=== PATIENT | male | born 1975 | race Hispanic/Latino ===

== ENCOUNTER 2018-09-04 14:38 | Inpatient (IN) ==
[2018-09-04 15:08] LABS: BASO# 0.01 X1000 (0.0-0.2); BASO% 0.1 % (0.0-0.8); HEMATOCRIT 41.8 % (42.0-52.0); HEMOGLOBIN 14.6 g/dL (14.0-18.0); IMM GRAN# 0.01 X1000 (0.0-0.04); IMM GRAN% 0.1 % (0.0-0.5); LYMPH# 0.76 X1000 (1.2-3.4); LYMPH% 8.8 % (20.5-51.1); MCH 29.1 PG (27-31); MCHC 34.9 g/dL (33-37); MCV 83.3 FL (81-99); MONO# 0.82 X1000 (0.11-0.59); MONO% 9.5 % (1.7-9.3); MPV 11.3 FL (7.4-10.4); NEUT# 7.05 X1000 (1.4-6.5); NEUT% 81.5 % (42.2-75.2); PLT 185 X1000 (130-400); RBC 5.02 XMIL (4.7-6.1); RDW 12.2 % (11.5-14.5); WBC 8.65 X1000 (4.8-10.8)
[2018-09-04 15:16] LABS: BE -5.1 mmoll (-3.0-3.0); BLOOD TYPE ARTERIAL; HCO3-(ACT) 20.8 mmoll (20.0-26.0); METHB 1.2 % (0.0-1.5); O2(CT) 19.3 mL/dL (15.0-23.0); PCO2(98.6) 32 mmHg (35-45); PO2(98.6) 71 mmHg (60-100); SAMPLE BLOOD; SAO2 97.3 % (95.0-100.0); THB 14.6 g/dL (11.5-17.4); pH(98.6) 7.38 (7.35-7.45)
[2018-09-04 15:17] LABS: BILIRUBIN URINE NEGATIVE (NEGATIVE); BLOOD URINE NEGATIVE (NEGATIVE); CLARITY CLEAR (CLEAR); COLOR YELLOW; KETONE URINE 3+(Large) mg/dL (NEGATIVE); LEUKOCYTES URINE NEGATIVE (NEGATIVE); NITRITE URINE NEGATIVE (NEGATIVE); PH URINE 6.5; PROTEIN URINE NEGATIVE (NEGATIVE); SP GRAVITY URINE 1.015; UROBILINOGEN URINE NORMAL
[2018-09-04 15:18] LABS: MODALITY ROOM AIR
[2018-09-04 15:19] LABS: ALLEN TEST NO
[2018-09-04 15:21] LABS: URINE SOURCE CLEAN CATCH
[2018-09-04 15:22] LABS: URINE BACTERIA NEGATIVE /HFP; URINE CAST NONE SEEN /LPF; URINE CRYSTAL NONE SEEN /HPF; URINE EPITHELIAL CELLS <10 /HPF (<10); URINE RBC <10 /HPF (<10); URINE WBC <10 /HPF (<10); URINE YEAST NONE SEEN /HPF
[2018-09-04 15:34] LABS: ESTIMATED GFR > 60
[2018-09-04] MEDS ORDERED: NS 1,000 ML IV ONE ×2 (15:34→17:01)
[2018-09-04] MEDS ORDERED: HUMALOG IV ONE (15:35)
[2018-09-04] MEDS ORDERED: HUMULIN R (PARKWAY) IV ONE (15:43)
[2018-09-04] MEDS ORDERED: HUMULIN R (PARKWAY) ONE (15:44)
[2018-09-04 15:54] LABS: AGAP 22; ALBUMIN 4.1 g/dL (3.5-5.0); ALKALINE PHOSPHATASE 136 U/L (32-122); BUN 20 mg/dL (8-22); CALCIUM 8.6 mg/dL (8.8-10.2); CHLORIDE 88 mmol/L (98-107); COSMO 290; GLUCOSE 583 mg/dL (70-104); GOT 27 U/L (10-34); GPT 23 U/L (10-44); POTASSIUM 4.8 mmol/L (3.5-5.1); SODIUM 130 mmol/L (136-145); TCO2 20 mmol/L (25-35); TOTAL PROTEIN 7.6 g/dL (6.3-8.3)
[2018-09-04] MEDS ORDERED: NOVOLOG MIX 70/30 (PARKWAY) SUBQ ONE (16:35)
[2018-09-04] MEDS ORDERED: HUMULIN 70/30 (PARKWAY) ONE (16:42)
[2018-09-04] MEDS ORDERED: ZOFRAN ODT PO ONE (16:56)
[2018-09-04 17:32] LABS: MAGNESIUM 1.8 mg/dL (1.5-2.7); PHOSPHORUS 4.7 mg/dL (2.7-4.5)
--- NOTE | 2018-09-04 18:25 | HISTORY AND PHYSICAL ---
CHIEF COMPLAINT: "I think my blood pressure is high. I have been vomiting." HISTORY OF PRESENT ILLNESS: This is a 43-year-old gentleman who presented to the emergency room stating that he had no way to check his blood sugar, but he felt that it was high. He does have a history of insulin dependent diabetes. He was found to have a blood sugar of 583. He states he takes no home medicines and it is unknown when he actually did his last blood sugar check. He was given a liter of saline as well as IV insulin in the emergency room. He is being admitted for further evaluation and treatment. PAST MEDICAL HISTORY: Insulin-dependent diabetes mellitus. PAST SURGICAL HISTORY: Denies. SOCIAL HISTORY: He smokes daily. He denies alcohol or illicit drug use. ALLERGIES: No known drug allergies. HOME MEDICATIONS: None. REVIEW OF SYSTEMS: Discussed with the patient with pertinent positives stated in HPI. He denied any syncope, dizziness, chest pain, palpitations, any black or bloody vomitus or stools, any diarrhea, constipation, any hematuria, dysuria, urgency. PHYSICAL EXAMINATION: GENERAL: This is a 43-year-old gentleman who presented to the emergency room complaining of elevated blood sugar. DICTATION ENDS HERE Dictated by ERMELINDA Ochoa for Leland Oshea MD This chart was documented by, ERMELINDA Ochoa and accurately reflects the services performed, treatment plan and medical decisions as attested by the providers signature Leland Oshea MD. cc: ERMELINDA Ochoa MD
[2018-09-04 18:45] LABS: MAGNESIUM 1.6 mg/dL (1.5-2.7); PHOSPHORUS 2.6 mg/dL (2.7-4.5)
[2018-09-04 18:57] LABS: AGAP 16; BUN 18 mg/dL (8-22); CALCIUM 7.6 mg/dL (8.8-10.2); CHLORIDE 98 mmol/L (98-107); COSMO 283; CREATININE 0.9 mg/dL (0.7-1.2); ESTIMATED GFR > 60; GLUCOSE 295 mg/dL (70-104); POTASSIUM 4.1 mmol/L (3.5-5.1); SODIUM 135 mmol/L (136-145); TCO2 21 mmol/L (25-35)
[2018-09-04] MEDS: NS 1,000 ML IV SCH (19:35)
--- NOTE | 2018-09-04 19:50 | Diag Imaging Result Doc PS360 ---
EXAM: CHEST-2 VIEWS INDICATION: ?reportedly something in lungs" TECHNIQUE: 2 views COMPARISON: None. FINDINGS: There is a vague opacity in the right midlung zone suggesting a subtle infiltrate. The left lung appears clear. There is no discrete pleural fluid collection or pneumothorax. The cardiomediastinal silhouette and central vasculature are grossly unremarkable. IMPRESSION: Suggestion of a mild infiltrate in the right midlung zone. Electronically signed by Jose Swanson 09/04/2018 7:48 PM
[2018-09-04] MEDS: HUMALOG (PARKWAY) SUBQ SCH (21:33)
[2018-09-04] MEDS ORDERED: TYLENOL PO PRN (22:05)
[2018-09-04] MEDS: ROCEPHIN 1 GM in NS 50 ML IV SCH ×2 (22:55→23:03)
[2018-09-04 23:06] LABS: PROTIME 13.7 Seconds (11.0-16.0)
[2018-09-04 23:07] LABS: PTT 36.4 Seconds (22.3-41.8)
--- NOTE | 2018-09-05 01:52 | HISTORY AND PHYSICAL ---
ADDENDUM: Patient seen and examined by myself. Full note dictated and discussed with nurse practitioner. The patient presented to the hospital with elevated blood sugar. His acetone was mildly positive. We will admit in the hospital, place him on insulin and follow. cc: Leland Oshea MD
[2018-09-05] MEDS: NS 1,000 ML IV SCH ×3 (03:58→21:27)
[2018-09-05] MEDS: ZOFRAN IV PRN ×3 (04:01→16:11)
[2018-09-05 05:22] LABS: HEMOGLOBIN A1C 11.1 % (4.8-6.0)
[2018-09-05 05:24] LABS: BASO# 0.01 X1000 (0.0-0.2); BASO% 0.1 % (0.0-0.8); HEMATOCRIT 36.5 % (42.0-52.0); HEMOGLOBIN 12.7 g/dL (14.0-18.0); IMM GRAN# 0.01 X1000 (0.0-0.04); IMM GRAN% 0.1 % (0.0-0.5); LYMPH# 1.59 X1000 (1.2-3.4); LYMPH% 15.6 % (20.5-51.1); MCH 28.7 PG (27-31); MCHC 34.8 g/dL (33-37); MCV 82.4 FL (81-99); MONO# 1.16 X1000 (0.11-0.59); MONO% 11.4 % (1.7-9.3); MPV 11.3 FL (7.4-10.4); NEUT# 7.41 X1000 (1.4-6.5); NEUT% 72.8 % (42.2-75.2); PLT 165 X1000 (130-400); RBC 4.43 XMIL (4.7-6.1); WBC 10.18 X1000 (4.8-10.8)
[2018-09-05 05:30] LABS: AGAP 14; ALBUMIN 3.2 g/dL (3.5-5.0); ALKALINE PHOSPHATASE 99 U/L (32-122); BUN 18 mg/dL (8-22); CALCIUM 7.6 mg/dL (8.8-10.2); CHLORIDE 98 mmol/L (98-107); COSMO 278; CREATININE 0.7 mg/dL (0.7-1.2); ESTIMATED GFR > 60; GLUCOSE 309 mg/dL (70-104); GOT 22 U/L (10-34); GPT 16 U/L (10-44); POTASSIUM 3.8 mmol/L (3.5-5.1); SODIUM 132 mmol/L (136-145); TCO2 21 mmol/L (25-35); TOTAL PROTEIN 6.2 g/dL (6.3-8.3)
[2018-09-05] MEDS: HUMALOG (PARKWAY) SUBQ SCH ×4 (06:09→21:27)
[2018-09-05] MEDS: PRILOSEC PO SCH (06:09)
[2018-09-05] MEDS ORDERED: FLU VACCINE IM ONE (09:00)
[2018-09-05] MEDS: ROCEPHIN 1 GM in NS 50 ML IV SCH (21:26)
--- NOTE | 2018-09-06 00:10 | PROGRESS NOTE ---
DATE: 09/05/2018 SUBJECTIVE: Patient has no complaints this morning. PHYSICAL EXAMINATION: Vital Signs: T-max 103.5 degrees, temperature current 99 degrees, pulse 100 respiratory 20, BP 125/71. General: Patient is pleasant to talk with. He is in no current respiratory distress. HEENT: Normocephalic. Neck: Supple. Cardiovascular: Regular rate. Chest: Clear. Abdomen: Soft. Extremities: Moves all extremities. ASSESSMENT: 1. Diabetic ketoacidosis, appears resolved. Blood sugars improved. Sodium bicarbonate is at 21. 2. Diabetes with very poor home control. His A1c is 11. PLAN: We will adjust his medications. Advance his diet and hopefully home over the next day or 2. cc: Leland Oshea MD
[2018-09-06] MEDS: NS 1,000 ML IV SCH (05:17)
[2018-09-06 05:45] VITALS: BP 133/79
[2018-09-06] MEDS: PRILOSEC PO SCH (06:07)
[2018-09-06] MEDS: HUMALOG (PARKWAY) SUBQ SCH ×2 (06:07→11:31)
[2018-09-06 06:18] LABS: BASO# 0.01 X1000 (0.0-0.2); BASO% 0.1 % (0.0-0.8); EOS# 0.02 X1000 (0.0-0.7); EOS% 0.2 % (0.0-10.0); HEMATOCRIT 34.7 % (42.0-52.0); HEMOGLOBIN 11.9 g/dL (14.0-18.0); IMM GRAN# 0.01 X1000 (0.0-0.04); IMM GRAN% 0.1 % (0.0-0.5); LYMPH# 1.54 X1000 (1.2-3.4); LYMPH% 17.1 % (20.5-51.1); MCH 28.5 PG (27-31); MCHC 34.3 g/dL (33-37); MONO# 0.68 X1000 (0.11-0.59); MONO% 7.6 % (1.7-9.3); MPV 11.7 FL (7.4-10.4); NEUT# 6.72 X1000 (1.4-6.5); NEUT% 74.9 % (42.2-75.2); PLT 145 X1000 (130-400); RBC 4.18 XMIL (4.7-6.1); WBC 8.98 X1000 (4.8-10.8)
[2018-09-06 06:30] LABS: ESTIMATED GFR > 60
[2018-09-06 06:39] LABS: AGAP 13; ALBUMIN 2.7 g/dL (3.5-5.0); ALKALINE PHOSPHATASE 241 U/L (32-122); BUN 9 mg/dL (8-22); CALCIUM 7.8 mg/dL (8.8-10.2); CHLORIDE 88 mmol/L (98-107); COSMO 256; CREATININE 0.6 mg/dL (0.7-1.2); GLUCOSE 242 mg/dL (70-104); GOT 26 U/L (10-34); GPT 12 U/L (10-44); MAGNESIUM 1.6 mg/dL (1.5-2.7); PHOSPHORUS 1.9 mg/dL (2.7-4.5); POTASSIUM 3.3 mmol/L (3.5-5.1); SODIUM 124 mmol/L (136-145); TCO2 23 mmol/L (25-35); TOTAL PROTEIN 5.9 g/dL (6.3-8.3)
[2018-09-06] MEDS ORDERED: OMNICEF PO SCH (09:15)
[2018-09-06] MEDS ORDERED: GLUCOTROL PO SCH (09:30)
[2018-09-06] MEDS ORDERED: GLUCOPHAGE PO SCH (09:30)
--- NOTE | 2018-09-06 18:17 | DISCHARGE SUMMARY ---
ADMISSION DATE: 09/04/2018 DISCHARGE DATE: 09/06/2018 DISCHARGE DIAGNOSIS: 1. Diabetic ketoacidosis resolved. 2. Diabetes with poor home control with an A1c at 11. 3. Febrile illness likely early pneumonia which created his diabetic ketoacidosis. 4. Volume depletion resolved. CONSULTATIONS: None. PROCEDURES: None. BRIEF HOSPITAL COURSE: Patient is a 43-year-old gentleman who presented to the hospital with elevated blood sugars, found to be acetone positive in early DKA. [place] as though he had pneumonia, he was placed on antibiotics. He does have insulin-dependent diabetes that unfortunately is poorly controlled at home with an A1c of 11. He was admitted, given IV fluids, DKA resolved. DISPOSITION: On discharge patient is awake, alert, he is in no distress, he is feeling better, we will discharge him home. Discussed with him to increase his basal rate of his insulin at home. Discussed how to do this. He will follow up outpatient with primary care of his choice. Greater than 30 minutes was spent in total care. cc: Leland Oshea MD
--- NOTE | 2018-09-07 09:22 | EKG Report ---
Test Performed on : 09/04/2018 3:19:24 PM Test Reason : [id number] Blood Pressure : / mmHG Vent. Rate : 111 BPM Atrial Rate : 111 BPM P-R Int : 150 ms QRS Dur : 082 ms QT Int : 312 ms P-R-T Axes : 071 143 059 degrees QTc Int : 424 ms Sinus tachycardia. Right axis deviation Abnormal ECG No previous ECGs available Unconfirmed Result
== END 2018-09-06 13:34 | disposition home or self-care (01) | DRG 637 ==
LOC: P.ED 14:38 → P.MEDSURG 16:58
PROVIDERS: ATTEND Family Medicine
CPT/HCPCS: 36415; 71020; 71046; 80048; 80053; 81001; 82009; 82550; 82805; 82948; 83036; 83605; 83735; 84100; 84484; 85025; 85610; 85730; 87040; 93005; 96360; 99285; A9270; J0696; J1815; J2405; J7030; XXXXX